=== PATIENT | female | born 1965 | race Hispanic/Latino ===

== ENCOUNTER 2018-02-27 10:33 | Emergency (ER) | payer MEDICARE ==
[2018-02-27] MEDS ORDERED: L.E.T. GEL 4%/0.5%/0.18% 3ML 3 ML/SYR SYG TP ONE (10:59)
== END 2018-02-27 12:18 | disposition home or self-care (01) ==
LOC: EDBD 10:33 → EDH 10:33
DX: S01.81XA Laceration without foreign body of other part of head, initial encounter (principal); F20.9 Schizophrenia, unspecified; H54.62 Unqualified visual loss, left eye, normal vision right eye; W40.8XXA Explosion of other specified explosive materials, initial encounter; Y93.89 Activity, other specified; Y92.128 Other place in nursing home as the place of occurrence of the external cause; Y99.8 Other external cause status
CPT/HCPCS: 12011

== ENCOUNTER → 2024-01-31 | Outpatient (CLI) | payer OTHER | END | disposition home or self-care (01) | LOC: RAH 08:18 | PROVIDERS: ATTEND Internal Medicine | DX: R13.12 Dysphagia, oropharyngeal phase (principal); R63.30 Feeding difficulties, unspecified | CPT/HCPCS: 74230; 92611 ==

== ENCOUNTER → 2024-02-29 | Outpatient (CLI) | payer OTHER, MEDICARE | END | disposition home or self-care (01) | LOC: RAH 09:31 | PROVIDERS: ATTEND Internal Medicine Gastroenterology | DX: K22.89 Other specified disease of esophagus (principal); R93.3 Abnormal findings on diagnostic imaging of other parts of digestive tract; R13.12 Dysphagia, oropharyngeal phase; R63.30 Feeding difficulties, unspecified | CPT/HCPCS: 74220 ==

== ENCOUNTER → 2024-05-21 | Outpatient (CLI) | payer OTHER, MEDICARE ==
--- NOTE | 2024-05-21 12:15 | HMCIMG ---
ABD COMP DECUB/ERECT VWS REASON: DIARRHEA COMPARISON: None TECHNIQUE: Supine and upright abdomen images were performed, 4 views. FINDINGS: There is a large amount solid fecal material in the colon consistent with constipation. There is no evidence of fecal impaction. Small bowel gas pattern appears normal. There is no free air. There are no abnormal calcifications. Bones and soft tissues appear normal. IMPRESSION: 1. Probable constipation, otherwise negative.
== END | disposition home or self-care (01) ==
LOC: RAH 09:11
PROVIDERS: ATTEND Internal Medicine
DX: R19.7 Diarrhea, unspecified (principal)
CPT/HCPCS: 74021